=== PATIENT | female | born 1960 | race Caucasian/White ===

== ENCOUNTER 2023-07-21 08:09 | Outpatient (CLI) | payer MEDICAID, SELFPAY ==
[2023-07-21 08:34] VITALS: PULSE 84; RESP 18; O2SAT 96
[2023-07-21] MEDS: albuterol 2.5 mg/3 mL Neb INHALATION (08:34)
[2023-07-21 08:39] VITALS: PULSE 91
== END 2023-07-21 08:10 | disposition home or self-care (01) ==
LOC: RT 08:12
PROVIDERS: Visit Provider Nurse Practitioner Occupational Health
DX: R06.02 Shortness of breath (principal)
CPT/HCPCS: 94060; 94726; 94729